=== PATIENT | male | born 1975 | race Two or more races ===

== ENCOUNTER 2023-04-11 13:59 | Emergency (ER) | payer BC ==
[~2023-04-11] VITALS: Ht 177.8 cm; Wt 97.7 kg
[2023-04-11] MEDS ORDERED: IBUP-1455 PO (18:32)
[2023-04-11] MEDS ORDERED: CEPH250C PO (18:32)
[2023-04-11] MEDS ORDERED: ACET500T58 PO (18:32)
[2023-04-11 19:03] VITALS: BP 140/90; PULSE 96; RESP 17; TEMP 98.6; O2SAT 97
== END 2023-04-11 19:04 | disposition home or self-care (01) ==
LOC: ER 13:59
DX: S61.012A Laceration without foreign body of left thumb without damage to nail, initial encounter (principal); W26.0XXA Contact with knife, initial encounter; Y93.89 Activity, other specified; Y92.89 Other specified places as the place of occurrence of the external cause; Y99.8 Other external cause status
CPT/HCPCS: 12001